=== PATIENT | male | born 1960 | race Caucasian/White ===

== ENCOUNTER → 2016-12-09 | Outpatient (CLI) | payer OTHER | END | disposition home or self-care (01) | LOC: Rad HDHVI 12:52 | PROVIDERS: ATTEND Internal Medicine Cardiovascular Disease | DX: I42.8 Other cardiomyopathies (principal); R07.89 Other chest pain | CPT/HCPCS: 93306 ==

== ENCOUNTER → 2016-12-29 | Outpatient (CLI) | payer OTHER ==
[~2016-12-29] VITALS: Ht 185.4 cm; Wt 108.9 kg
== END | disposition home or self-care (01) ==
LOC: Rad HDHVI 13:48
PROVIDERS: ATTEND Internal Medicine Cardiovascular Disease
DX: Z13.6 Encounter for screening for cardiovascular disorders (principal); I10 Essential (primary) hypertension; E11.9 Type 2 diabetes mellitus without complications
CPT/HCPCS: 93017

== ENCOUNTER → 2021-04-09 | Outpatient (CLI) | payer OTHER ==
[2021-04-09 12:42] LABS: BUN/Creatinine Ratio 23.5; Calcium 9.6 mg/dL (8.5-10.1); Potassium 4.6 mmol/L (3.5-5.1)
== END | disposition home or self-care (01) ==
LOC: CHF HDHVI 10:59
PROVIDERS: ATTEND Internal Medicine Cardiovascular Disease
DX: I10 Essential (primary) hypertension (principal)
CPT/HCPCS: 36415; 80048

== ENCOUNTER → 2021-07-11 | Outpatient (CLI) | payer OTHER ==
[2021-07-11 11:40] LABS: Calcium 9.1 mg/dL (8.5-10.1); Potassium 4.5 mmol/L (3.5-5.1)
== END | disposition home or self-care (01) ==
LOC: LAB 09:16
PROVIDERS: ATTEND Internal Medicine
DX: E11.9 Type 2 diabetes mellitus without complications (principal); I10 Essential (primary) hypertension
CPT/HCPCS: 36415; 80048; 83036

== ENCOUNTER → 2022-09-04 | Outpatient (CLI) | payer OTHER ==
[2022-09-04 11:49] LABS: Potassium 4.7 mmol/L (3.5-5.1)
[2022-09-04 11:54] LABS: BUN/Creatinine Ratio 25.2; Calcium 9.6 mg/dL (8.5-10.1)
== END | disposition home or self-care (01) ==
LOC: LAB 08:59
PROVIDERS: ATTEND Internal Medicine Cardiovascular Disease
DX: E11.9 Type 2 diabetes mellitus without complications (principal)
CPT/HCPCS: 36415; 80048; 83036

== ENCOUNTER → 2023-09-22 | Outpatient (CLI) | payer OTHER ==
[~2023-09-22] VITALS: Ht 182.9 cm; Wt 114.3 kg
== END | disposition home or self-care (01) ==
LOC: Rad HDHVI 12:24
PROVIDERS: ATTEND Internal Medicine Cardiovascular Disease
DX: I25.10 Atherosclerotic heart disease of native coronary artery without angina pectoris (principal); R06.02 Shortness of breath; E11.21 Type 2 diabetes mellitus with diabetic nephropathy; E11.40 Type 2 diabetes mellitus with diabetic neuropathy, unspecified; I10 Essential (primary) hypertension; E78.00 Pure hypercholesterolemia, unspecified
CPT/HCPCS: 78452; 93017; 96374; A9500

== ENCOUNTER → 2023-09-29 | Outpatient (CLI) | payer OTHER | END | disposition home or self-care (01) | LOC: Rad HDHVI 12:42 | PROVIDERS: ATTEND Internal Medicine Cardiovascular Disease | DX: I11.9 Hypertensive heart disease without heart failure (principal) | CPT/HCPCS: 93306 ==

== ENCOUNTER → 2023-09-30 | Outpatient (CLI) | payer OTHER | END | disposition home or self-care (01) | LOC: Rad HDHVI 13:48 | PROVIDERS: ATTEND Internal Medicine Cardiovascular Disease | DX: I65.23 Occlusion and stenosis of bilateral carotid arteries (principal); I10 Essential (primary) hypertension; E78.5 Hyperlipidemia, unspecified | CPT/HCPCS: 93880 ==

== ENCOUNTER → 2025-02-13 | Outpatient (CLI) | payer OTHER ==
[~2025-02-13] MED LIST: IOHEXOL 350 MG/ML 100ML IJ ONE
[2025-02-13 15:58] VITALS: BP 120/81; PULSE 78; RESP 18; O2SAT 94
[2025-02-13 16:10] VITALS: BP 119/81; PULSE 82; RESP 18; O2SAT 94
--- NOTE | 2025-02-13 16:54 | DVH ---
EXAM: CT NECK WITH CONTRAST SOFT INDICATION: R/O MASS EXAM DATE: 02/13/2025 03:58 PM COMPARISON: None TECHNIQUE: Multiple axial CT images of the neck were obtained using bone algorithm. Axial and coronal reformatting was done. Bone and soft tissue windows were reviewed. IV contrast was administered Radiation Dose Information: CT Dose: CTDI volume is 17.38 mGy. Dose-length product is 491.92 mGy*cm Findings: Nasopharynx, oropharynx, hypopharynx, and larynx are normal in caliber without evidence of focal mass . Mucoperiosteal thickening of bilateral maxillary sinuses. Parotid, submandibular, and sublingual glands are within normal limits. The tongue is unremarkable. Hypodense, partially calcified left thyroid nodule. No evidence of superior mediastinal lymphadenopat hy. Cervical soft tissues within normal limits with no evidence of significant cervical lymphadenopathy. Musculoskeletal structures grossly unremarkable with no evidence of acute osseous abnormality. Impression: 1. No acute osseous or soft tissue abnormalities. 2. No definite evidence of a mass. 3. Partially calcified left thyroid nodule. Recommend a nonemergent, outpatient thyroid ultrasound f or further evaluation. 4. Bilateral maxillary sinus disease.
--- NOTE | 2025-02-13 16:58 | DVH ---
EXAM: CT CHEST WITH CONTRAST History: R/O MASS Comparison Study: None TECHNIQUE: A digital research project manager image was obtained. During the uneventful, intravenous administration of c ontrast material, multislice data acquisition was obtained through the chest. The data set was subseq uently reconstructed into axial, coronal, and sagittal images. Radiation Dose : CTDI vol 33.82 mGy, DLP 1286.74 mGy*cm. Findings: Lungs: The lungs are clear. Pleura: Unremarkable Heart/Great vessels: No cardiomegaly or pericardial effusion. Mild coronary atherosclerosis. Mediastinum: Unremarkable Soft tissues/Bones: Unremarkable Cholecystectomy. Lap band. The remaining partially visualized upper abdomen is within normal limits. Impression: 1. No acute cardiopulmonary disease. 2. No definite mass appreciated. Code hs:y
== END | disposition home or self-care (01) ==
LOC: Rad HDHVI 15:43
PROVIDERS: ATTEND Internal Medicine Cardiovascular Disease
DX: J32.0 Chronic maxillary sinusitis (principal); I25.10 Atherosclerotic heart disease of native coronary artery without angina pectoris; E04.1 Nontoxic single thyroid nodule; J34.89 Other specified disorders of nose and nasal sinuses; R22.1 Localized swelling, mass and lump, neck; Z90.49 Acquired absence of other specified parts of digestive tract
CPT/HCPCS: 70491; 71260; G0463; Q9967